=== PATIENT | female | born 1960 | race Caucasian/White ===

== ENCOUNTER 2018-05-19 00:08 | Observation (INO) | payer BC, OTHER ==
[2018-05-19] VITALS (13 sets, daily range): BP systolic 67–110; BP diastolic 45–96
[~2018-05-19] VITALS: Ht 162.6 cm; Wt 52.6 kg
[2018-05-19 06:27] LABS: PLATELET COUNT, AUTOMATED 260 K/uL (150-450)
[2018-05-19] MEDS ORDERED: LIDOCAINE/SOD BICARB 8.4% SYR ID ONE (06:30)
[2018-05-19] MEDS ORDERED: FAMOTIDINE 20 MG TAB PO ONE (06:30)
[2018-05-19] MEDS ORDERED: MIDAZOLAM 2 MG/2 ML VIAL IVP PRN (06:30)
[2018-05-19] MEDS ORDERED: cefOXitin/DEX(*) 2GM/50ML PREM 50 ML IVPB ONE (06:30)
[2018-05-19] MEDS ORDERED: NORMOSOL R SOLN(*) 1000 ML BAG 1,000 ML IV PRN (06:30)
[2018-05-19] MEDS ORDERED: SCOP1PAT16 TP (06:40)
[2018-05-19] MEDS ORDERED: ESTROGENS CONJ VAG CREAM 30 GM TUBE PV ONE (06:52)
[2018-05-19] MEDS ORDERED: NS(*) 0.9% 10 ML VIAL 0 ML ONE (06:52)
[2018-05-19] MEDS ORDERED: VASOPRESSIN 20 UNIT/ML VIAL ONE (06:53)
[2018-05-19] MEDS ORDERED: NS(*) 0.9% 10 ML VIAL 30 ML ONE (06:54)
[2018-05-19] MEDS ORDERED: METOCLOPRAMIDE 10 MG/2 ML SDV ONE (06:58)
[2018-05-19] MEDS ORDERED: fentaNYL CITR 100 MCG/2 ML AMP ONE ×2 (06:58→09:46)
[2018-05-19] MEDS ORDERED: DEXAMETHASONE SOD 4 MG/ML VIAL ONE (06:58)
[2018-05-19] MEDS ORDERED: LIDOCAINE MPF 1% 5 ML VIAL ONE (06:58)
[2018-05-19] MEDS ORDERED: PROPOFOL EMUL(*) 10MG/ML 20 ML 20 ML ONE (06:58)
[2018-05-19] MEDS ORDERED: ONDANSETRON 4 MG/2 ML VIAL ONE (06:58)
[2018-05-19] MEDS ORDERED: NS(*) 0.9% 100 ML BAG 100 ML ONE (07:09)
[2018-05-19] MEDS ORDERED: ACETAMINOPHEN(*)1000 MG/100 ML 100 ML IVPB ONE (07:20)
[2018-05-19] MEDS ORDERED: ZOLPIDEM TARTRATE 10 MG TAB PO PRN ×2 (09:10→12:25)
[2018-05-19] MEDS ORDERED: PROMETHAZINE 25 MG/ML 1 ML AMP IVP PRN ×2 (09:10→12:25)
[2018-05-19] MEDS ORDERED: HYDROmorphone HCL 2 MG TAB PO PRN ×2 (09:10→12:25)
[2018-05-19] MEDS ORDERED: DLR(*) 1000 ML BAG 1,000 ML IV PRN (09:10)
[2018-05-19] MEDS ORDERED: ONDANSETRON 4 MG/2 ML VIAL IVP PRN ×2 (09:10→12:25)
[2018-05-19] MEDS ORDERED: SIMETHICONE 80 MG CHEW CHEW PRN ×2 (09:10→12:25)
[2018-05-19] MEDS ORDERED: ACETAMINOPHEN 325 MG TAB PO PRN ×2 (09:10→12:25)
--- NOTE | 2018-05-19 09:18 | Post Operative Note ---
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
[2018-05-19] MEDS ORDERED: KETOROLAC 15 MG/ML VIAL ONE (09:25)
[2018-05-19] MEDS ORDERED: DOCU-416 PO (09:25)
[2018-05-19] MEDS ORDERED: IBUP800T37 PO (09:25)
[2018-05-19] MEDS ORDERED: OXYC-865 PO (09:25)
[2018-05-19] MEDS ORDERED: KETOROLAC 30 MG/ML VIAL IVP SCH ×3 (10:00→15:00)
[2018-05-19] MEDS ORDERED: IBUPROFEN 800 MG TAB PO PRN (12:25)
--- NOTE | 2018-05-19 14:27 | OPERATIVE REPORT 1 ---
EVENT DATE: May 19, 2018 SURGEON: Boogie Glover MD ANESTHESIOLOGIST: Darrin Marques MD ANESTHESIA: General. EMERGENCY DEPARTMENT PHYSICIAN: Emiliana Gonzalez PA-C PREOPERATIVE DIAGNOSIS Rectocele. POSTOPERATIVE DIAGNOSIS Rectocele. PROCEDURE PERFORMED Posterior colporrhaphy. ESTIMATED BLOOD LOSS Minimal. FLUIDS Crystalloid 1500 mL IV. PROCEDURE IN DETAIL The patient was brought to the operating room and placed on the dorsal supine position on the operating table. She was placed under general anesthesia and moved to the dorsal lithotomy position. She was prepped and draped in the usual sterile fashion. A lighted anterior retractor was placed in the vagina, and the defect was observed along its entire length. It is a midline defect distal, but approximated the length of the vagina, grade 3 with some minor cornification of the vaginal epithelium noted toward the distal portion. The linear incision was made along the length of the defect with a 15 blade scalpel, and a matt- shaped wedge resection of the perineal body was performed as well as second- degree episiotomy in order to assist with opening of the vaginal introitus. Further dissection along the midline incision and laterally dissected away the vaginal epithelium using traction and countertraction. The same procedure was followed on both sides in order to adequately remove the vaginal epithelium from the endopelvic fascia. Once adequately exposed, a pursestring stitch of 2-0 Vicryl was placed to reduce the size of the defect. Sofia plication stitches were then placed along the length of the defect to further reduce the herniation. A finger was inserted into the rectum, and site-specific repair was performed in a few weakened areas, but otherwise an excellent recreation of the endopelvic fascia was accomplished with the Sofia plication. Gloves were changed. Excess vagina and the cornified edges were removed. The defect was then repaired with a 2-0 Vicryl in a running locking stitch along the length of the defect with perineal body repaired as is typical for second-degree obstetrical tear with an excellent result. Two additional [id number] stitches were needed along the length of the vaginal repair for hemostasis. Upon completion, the vagina was irrigated and suctioned dry. The vagina was then packed with a Kerlix sponge moistened with Premarin cream. A Siegel catheter was placed and left to dependent drainage. No complications. She tolerated the procedure well. Sponge, lap, instrument, and needle counts were all correct. MTDD
[2018-05-19] MEDS: KETOROLAC 30 MG/ML VIAL IVP SCH ×2 (15:46→21:06)
[2018-05-19] MEDS: DLR(*) 1000 ML BAG 1,000 ML IV PRN ×2 (15:46→22:19)
[2018-05-19] MEDS ORDERED: BENZOCAINE 20% 60 ML BTL TP PRN (18:45)
[2018-05-19] MEDS ORDERED: DOCUSATE CALCIUM 240 MG CAP PO SCH (21:00)
[2018-05-19] MEDS ORDERED: FAMOTIDINE 20 MG TAB PO SCH (21:00)
[2018-05-19] MEDS: FAMOTIDINE 20 MG TAB PO SCH (21:03)
[2018-05-19] MEDS: DOCUSATE CALCIUM 240 MG CAP PO SCH (21:04)
[2018-05-20] MEDS: DLR(*) 1000 ML BAG 1,000 ML IV PRN (03:19)
[2018-05-20] MEDS: KETOROLAC 30 MG/ML VIAL IVP SCH (03:19)
[2018-05-20] MEDS ORDERED: IBUPROFEN 800 MG TAB PO PRN ×3 (04:00→09:00)
[2018-05-20 06:20] VITALS: BP 106/66
[2018-05-20 07:15] VITALS: BP 93/57
[2018-05-20] MEDS: DOCUSATE CALCIUM 240 MG CAP PO SCH (08:08)
[2018-05-20] MEDS: FAMOTIDINE 20 MG TAB PO SCH (08:08)
--- NOTE | 2018-05-20 08:58 | OB/GYN Discharge Summary ---
Discharge Summary Reason for Hosp/Final Diag: (1) Rectocele Hospital Course & Plan: s/p posterior repair. Normal post operative course, voiding well after samaniego removed. Follow-up in office in 2 weeks (2) Vaginal atrophy Lates Vital Signs Vital Signs Date Time Temp Pulse Resp B/P (MAP) Pulse Ox O2 Delivery O2 Flow Rate FiO2 05/20/18 07:15 97 Room Air 05/20/18 07:15 98.4 68 13 93/57 (69) 05/20/18 04:00 0.5 Weight (Pounds): 116 Result Diagram: 05/19/18614 Condition: Improved Discharge: Home, Self [facility] Meds Active Scripts Docusate Sodium (COLACE) 100 Mg Capsule, 100 MG PO BID for constipation, #20 CAPSULE Prov:MARIETTA JOHN 05/19/18 Oxycodone Hcl/Acetaminophen (PERCOCET 5-325 MG TABLET) 1 Each Tablet, 1 EACH PO Q4-6H PRN for PAIN, #20 TAB 0 Refills TAKE 1 TABLET NEEDED FOR PAIN - NO CLOSER THAN EVERY 4-6 HOURS. Prov:MARIETTA JOHN 05/19/18 Ibuprofen (IBUPROFEN) 800 Mg Tablet, 1 TAB PO Q8H, #30 TAB 0 Refills Take with food every 8 hours. Prov:MARIETTA JOHN 05/19/18 Reported Medications Scopolamine (Scopolamine) 1 Mg/3 Day Patch.td.3, 1 ADH.PATCH TP ONCE 05/19/18 [None] No Conflict Check, 0 Refills 08/30/09 [facility] [phone], Dr. Glover [phone] Follow up in: 2 wks PO Discharge Activity: As Tolerates, Pelvic Rest Special Instructions: No driving on narcotic pain medication. Take stool softners to avoid straining. MARIETTA JOHN May 20, 2018 08:58
--- NOTE | 2018-05-20 09:01 | OB/GYN Progress Note ---
OB Subjective Progress Notes Subjective 58 yo female POD#1 from Posterior colporrhaphy for rectocele. Doing well. Packing removed this morning -scant bleeding on packing, minimal spotting since. Pain controlled on NSAIDs. Voiding after samaniego was removed. No nausea/vomiting, passing flatus. GI: POS Flatus; NEG Nausea, NEG Vomiting : Voiding Well, Vaginal Bleeding, Scant Pain: Mild, Tolerating PO Pain Meds OB Objective Physical Exam Vital Signs Date Time Temp Pulse Resp B/P (MAP) Pulse Ox O2 Delivery O2 Flow Rate FiO2 05/20/18 07:15 97 Room Air 05/20/18 07:15 98.4 68 13 93/57 (69) 05/20/18 04:00 0.5 Intake and Output 05/20/18 07:00 Intake Total 4640 ml Output Total 1395 ml Balance 3245 ml Intake Oral 700 ml IV Total 3940 ml Output Urine Total 1395 ml General Appearance: Alert/Awake/No Acute Distress Neurological: No Gross deficits Cardiovascular: No Edema Respiratory: No Respiratory Distress Abdomen: Soft, Non-Tender, Non-Distended Musculoskeletal: No Weakness/Pain Extremities: No Cyanosis,Clubbing or Edema Integumentary: Skin Intact without Lesions or Rash Psychological: Alert & Oriented X3 Result Diagram: 05/19/18 0615 Assessment and Plan 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 Normal post operative course, voiding well after samaniego removed with scant vaginal bleeding. Follow-up in office in 2 weeks (2) Vaginal atrophy MARIETTA JOHN May 20, 2018 09:01
[2018-05-20] MEDS ORDERED: INFLUENZA VIRUS VAC 0.5ML SYR IM ONLY ONE ×2 (09:10→12:25)
[2018-05-20 11:00] VITALS: BP 95/62
== END 2018-05-20 08:56 | disposition home or self-care (01) ==
LOC: OR 00:08 → PED 10:30
PROVIDERS: ADMIT Obstetrics & Gynecology; ATTEND Obstetrics & Gynecology
DX: N81.6 Rectocele (principal)
CPT/HCPCS: 36415; 57250; 85025; 96372; G0378; J0131; J0694; J1100; J1885; J2001; J2405; J2704; J2765; J3010; J3490; J7050